=== PATIENT | female | born 1925 | race Caucasian/White ===

== ENCOUNTER 2016-09-05 14:57 | Inpatient (IN) | payer MEDICARE, BC ==
[2016-09-05] MEDS ORDERED: SODIUM CHLORIDE 0.9% 1,000 ML IV STA (15:12)
--- NOTE | 2016-09-05 15:41 | ED ---
General Adult HPI - General Chief complaint: Weakness Stated complaint: confused Time Seen by Provider: 09/05/16 15:12 Source: family, RN notes reviewed, old records reviewed Mode of arrival: wheelchair Limitations: no limitations - History of Present Illness Initial comments: This is an 89-year-old female here for evaluation of this patient presents for evaluation of altered mental status. Patient has no medical history of prior similar symptoms, going through increased stress associated hospital. Patient' s integument medication at home per family and no drugs or alcohol, no trauma. 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 - Related Data Home Medications Medication Instructions Recorded Confirmed Aspirin 81 mg PO QAM 12/25/13 09/05/16 Atenolol 25 mg PO QAM 12/25/13 09/05/16 Cholecalciferol [Vitamin D3] 2,000 unit PO HS 12/25/13 09/05/16 Loratadine [Claritin] 10 mg PO HS 12/25/13 09/05/16 Montelukast Sodium [Singulair] 10 mg PO HS 12/25/13 09/05/16 Multivitamins, Thera [Multivitamin 1 tab PO QAM 12/25/13 09/05/16 (formulary)] Simvastatin [Zocor] 40 mg PO HS 12/25/13 09/05/16 Tiotropium 18 Mcg/Puff [Spiriva] 1 cap INHALATION RT-DAILY 12/25/13 09/05/16 Cyanocobalamin [Vitamin B-12] 500 mcg PO QAM 11/14/15 09/05/16 Spironolactone [Aldactone] 25 mg PO DAILY 11/14/15 09/05/16 Clopidogrel [Plavix] 37.5 mg PO QAM 09/05/16 09/05/16 HYDROcodone/APAP 7.5-325MG [[place] 1 tab PO DAILY PRN 09/05/16 09/05/16 7.5-325] Allergies Allergy/AdvReac Type Severity Reaction Status Date / Time No Known Allergies Allergy Verified 09/05/16 15:38 Review of Systems ROS Statement: Those systems with pertinent positive or pertinent negative responses have been documented in the HPI. ROS Other: All systems not noted in ROS Statement are negative. Past Medical History Past Medical History: Asthma, Coronary Artery Disease (CAD), COPD, GI Bleed, Hearing Disorder / Deafness, Hyperlipidemia, Hypertension, Osteoarthritis (OA), Renal Disease Additional Past Medical History / Comment(s): hard of hearing, ischemic colitis , colonoscopy 10/2015-carcinoma in situ vs dysplastic colon polyps History of Any Multi-Drug Resistant Organisms: None Reported Past Surgical History: Heart Catheterization With Stent, Orthopedic Surgery, Tubal Ligation Additional Past Surgical History / Comment(s): 3-5 different stents, finger surgery Past Anesthesia/Blood Transfusion Reactions: Unable to Obtain Date of Last Stent Placement:: 1998 Past Psychological History: No Psychological Hx Reported Smoking Status: Never smoker Past Alcohol Use History: None Reported Past Drug Use History: None Reported - Past Family History Father Family Medical History: Coronary Artery Disease (CAD) Mother Family Medical History: Unable to Obtain Sister(s) Family Medical History: Cancer, CVA/TIA Daughter(s) Family Medical History: Coronary Artery Disease (CAD), Hyperlipidemia, Hypertension, Osteoarthritis (OA) Son(s) Family Medical History: Unable to Obtain General Exam Limitations: no limitations General appearance: alert, in no apparent distress Head exam: Present: atraumatic, normocephalic, normal inspection Eye exam: Present: normal appearance, PERRL, EOMI. Absent: scleral icterus, conjunctival injection, periorbital swelling ENT exam: Present: normal exam, mucous membranes moist Neck exam: Present: normal inspection. Absent: tenderness, meningismus, lymphadenopathy Respiratory exam: Present: normal lung sounds bilaterally. Absent: respiratory distress, wheezes, rales, rhonchi, stridor Cardiovascular Exam: Present: regular rate, normal rhythm, normal heart sounds. Absent: systolic murmur, diastolic murmur, rubs, gallop, clicks GI/Abdominal exam: Present: soft, normal bowel sounds. Absent: distended, tenderness, guarding, rebound, rigid Extremities exam: Present: normal inspection, full ROM, normal capillary refill. Absent: tenderness, pedal edema, joint swelling, calf tenderness Back exam: Present: normal inspection Neurological exam: Present: alert, oriented X3, CN II-XII intact Psychiatric exam: Present: normal affect, normal mood Skin exam: Present: warm, dry, intact, normal color. Absent: rash Course Vital Signs 09/05/16 15:03 Temperature 98.5 F Pulse Rate 79 Respiratory 16 Rate Blood Pressure 153/95 O2 Sat by Pulse 96 Oximetry - Reevaluation(s) Reevaluation #1: 09/05/16 16:16 Patient still remaining mildly altered, although able to straight for questions , knows where she has no surname is no scleral members at bedside EKG Findings - EKG Comments: EKG Findings:: EKG shows sinus rhythm rate of 66, IN 170, QRS 96, QTC 427 Medical Decision Making - Medical Decision Making 89 female the ER thought altered mental status, dehydration positive urinary tract infection, patient will be admitted for IV hydration, monitoring of mental status and IV antibiotics for UTI. - Lab Data Result diagrams: 09/05/16 15:31 09/05/16 15:31 Lab Results 09/05/16 09/05/16 09/05/16 Range/Units 15:29 15:31 15:31 WBC 8.1 (3.8-10.6) k/uL RBC 4.77 (3.80-5.40) m/uL Hgb 14.2 (11.4-16.0) gm/dL Hct 42.7 (34.0-46.0) % MCV 89.6 (80.0-100.0) fL MCH 29.6 (25.0-35.0) pg MCHC 33.1 (31.0-37.0) g/dL RDW 13.3 (11.5-15.5) % Plt Count 201 (150-450) k/uL Neutrophils % 60 % Lymphocytes % 26 % Monocytes % 7 % Eosinophils % 3 % Basophils % 1 % Neutrophils # 4.9 (1.3-7.7) k/uL Lymphocytes # 2.1 (1.0-4.8) k/uL Monocytes # 0.5 (0-1.0) k/uL Eosinophils # 0.3 (0-0.7) k/uL Basophils # 0.1 (0-0.2) k/uL PT (9.0-12.0) sec INR (<1.1) APTT (22.0-30.0) sec Sodium (137-145) mmol/L Potassium (3.5-5.1) mmol/L Chloride (98-107) mmol/L Carbon Dioxide (22-30) mmol/L Anion Gap mmol/L BUN (7-17) mg/dL Creatinine (0.52-1.04) mg/dL Est GFR (MDRD) Af Amer (>60 ml/min/1.73 sqM) Est GFR (MDRD) Non-Af (>60 ml/min/1.73 sqM) Glucose (74-99) mg/dL Calcium (8.4-10.2) mg/dL Phosphorus (2.5-4.5) mg/dL Magnesium (1.6-2.3) mg/dL Total Bilirubin (0.2-1.3) mg/dL AST (14-36) U/L ALT (9-52) U/L Alkaline Phosphatase (38-126) U/L Ammonia (<30) umol/L Total Creatine Kinase 58 (30-135) U/L Total Protein (6.3-8.2) g/dL Albumin (3.5-5.0) g/dL Urine Color Yellow Urine Appearance Clear (Clear) Urine pH 5.0 (5.0-8.0) Ur Specific [place] 1.019 (1.001-1.035) Urine Protein Negative (Negative) Urine Glucose (UA) Negative (Negative) Urine Ketones Negative (Negative) Urine Blood Negative (Negative) Urine Nitrite Negative (Negative) Urine Bilirubin Negative (Negative) Urine Urobilinogen <2.0 (<2.0) mg/dL Ur Leukocyte Esterase Large H (Negative) Urine RBC 3 (0-5) /hpf Urine WBC 17 H (0-5) /hpf Ur Squamous Epith Cells 4 (0-4) /hpf Urine Bacteria Rare H (None) /hpf Urine Mucus Rare H (None) /hpf 09/05/16 09/05/16 09/05/16 Range/Units 15:31 15:31 15:44 WBC (3.8-10.6) k/uL RBC (3.80-5.40) m/uL Hgb (11.4-16.0) gm/dL Hct (34.0-46.0) % MCV (80.0-100.0) fL MCH (25.0-35.0) pg MCHC (31.0-37.0) g/dL RDW (11.5-15.5) % Plt Count (150-450) k/uL Neutrophils % % Lymphocytes % % Monocytes % % Eosinophils % % Basophils % % Neutrophils # (1.3-7.7) k/uL Lymphocytes # (1.0-4.8) k/uL Monocytes # (0-1.0) k/uL Eosinophils # (0-0.7) k/uL Basophils # (0-0.2) k/uL PT 10.6 (9.0-12.0) sec INR 1.0 (<1.1) APTT 22.3 (22.0-30.0) sec Sodium 139 (137-145) mmol/L Potassium 5.0 (3.5-5.1) mmol/L Chloride 100 (98-107) mmol/L Carbon Dioxide 27 (22-30) mmol/L Anion Gap 12 mmol/L BUN 28 H (7-17) mg/dL Creatinine 1.06 H (0.52-1.04) mg/dL Est GFR (MDRD) Af Amer 59 (>60 ml/min/1.73 sqM) Est GFR (MDRD) Non-Af 49 (>60 ml/min/1.73 sqM) Glucose 123 H (74-99) mg/dL Calcium 10.2 (8.4-10.2) mg/dL Phosphorus 4.3 (2.5-4.5) mg/dL Magnesium 1.9 (1.6-2.3) mg/dL Total Bilirubin 0.6 (0.2-1.3) mg/dL AST 24 (14-36) U/L ALT 24 (9-52) U/L Alkaline Phosphatase 62 (38-126) U/L Ammonia <9 (<30) umol/L Total Creatine Kinase (30-135) U/L Total Protein 7.8 (6.3-8.2) g/dL Albumin 4.4 (3.5-5.0) g/dL Urine Color Urine Appearance (Clear) Urine pH (5.0-8.0) Ur Specific [place] (1.001-1.035) Urine Protein (Negative) Urine Glucose (UA) (Negative) Urine Ketones (Negative) Urine Blood (Negative) Urine Nitrite (Negative) Urine Bilirubin (Negative) Urine Urobilinogen (<2.0) mg/dL Ur Leukocyte Esterase (Negative) Urine RBC (0-5) /hpf Urine WBC (0-5) /hpf Ur Squamous Epith Cells (0-4) /hpf Urine Bacteria (None) /hpf Urine Mucus (None) /hpf - Radiology Data Radiology results: report reviewed, image reviewed Disposition Clinical Impression: Altered mental status, Weakness, Dehydration, UTI (urinary tract infection) Disposition: HOME SELF-CARE Condition: Good Referrals: Yecenia Larkin MD [Primary Care Provider] - 1-2 days
[2016-09-05 15:46] LABS: Basophils # (A) 0.1 k/uL (0-0.2); Basophils % (A) 1 %; CH 30.1; CHCM 33.8; Eosinophils # (A) 0.3 k/uL (0-0.7); Eosinophils % (A) 3 %; HCT 42.7 % (34.0-46.0); HDW 2.33; HGB 14.2 gm/dL (11.4-16.0); Luc # (Auto) 0.26; Luc % (Auto) 3; Lymphocytes # (A) 2.1 k/uL (1.0-4.8); Lymphocytes % (A) 26 %; MCH 29.6 pg (25.0-35.0); MCHC 33.1 g/dL (31.0-37.0); MCV 89.6 fL (80.0-100.0); Mean Platelet Volume 6.5; Monocytes # (A) 0.5 k/uL (0-1.0); Monocytes % (A) 7 %; Neutrophils # (A) 4.9 k/uL (1.3-7.7); Neutrophils % (A) 60 %; RBC 4.77 m/uL (3.80-5.40); RDW 13.3 % (11.5-15.5); WBC 8.1 k/uL (3.8-10.6); WBC (Perox) 7.69
[2016-09-05 15:57] LABS: Partial Thromboplastin Time 22.3 sec (22.0-30.0); Prothrombin Time 10.6 sec (9.0-12.0)
[2016-09-05 15:59] LABS: Calcium 10.2 mg/dL (8.4-10.2); Magnesium 1.9 mg/dL (1.6-2.3); Phosphorous 4.3 mg/dL (2.5-4.5); Total Bilirubin 0.6 mg/dL (0.2-1.3); Total Protein 7.8 g/dL (6.3-8.2)
--- NOTE | 2016-09-05 16:00 | CT ---
EXAMINATION TYPE: CT brain wo con DATE OF EXAM: 09/05/2016 3:56 PM COMPARISON: 04/28/2015 HISTORY: ams CT DLP: 1017.[address] of the brain was performed. The ventricles, basal cisterns and sulci overlying the cerebral convexities demonstrate mild enlargem ent. Remote insult left basal ganglia. There is no evidence for intracranial hemorrhage or sulcal effacement. There is decreased attenuation about the periventricular white matter and deep white matter of both c erebral hemispheres, compatible with chronic small vessel ischemia. Differential diagnosis does inclu de demyelination. No mass effects are seen.No midline shift. Osseous calvarium is intact. If symptoms persist consider MRI. IMPRESSION: 1. Age related atrophic and chronic small vessel ischemic change without acute intracranial process s een at this time.
[2016-09-05 16:05] LABS: Creatine Kinase 58 U/L (30-135)
[2016-09-05 16:07] LABS: Appearance,Urine Clear (Clear); Bacteria,Urine Rare /hpf; Bilirubin,Urine Negative (Negative); Glucose,Urine (UA) Negative (Negative); Ketones,Urine Negative (Negative); Leukocyte Esterase,Urine Large (Negative); Mucus,Urine Rare /hpf; Nitrite,Urine Negative (Negative); Particle Count 3672; Protein,Urine Negative (Negative); RBC,Urine 3 /hpf (0-5); Specific Gravity,Urine 1.019 (1.001-1.035); Squamous Epithelial Cell,Urine 4 /hpf (0-4); UA Billing (MACRO vs. MICRO) MICRO; Urobilinogen,Urine <2.0 mg/dL (<2.0); WBC,Urine 17 /hpf (0-5)
[2016-09-05 16:16] LABS: Creatine Kinase MB 1.2 ng/mL (0.0-2.4); Troponin I <0.012 ng/mL (0.000-0.034)
[2016-09-05] MEDS ORDERED: SODIUM CHLORIDE 0.9% 1,000 ML IV ONE (16:16)
[2016-09-05] MEDS ORDERED: HYDROcodone/APAP 7.5-325MG 1 EACH TAB PO PRN (18:56)
--- NOTE | 2016-09-05 19:07 | P.HPIM ---
History of Present Illness H&P Date: 09/05/16 Chief Complaint: Mental status change This is a pleasant 89-year-old lady patient of Dr. Santana/ ALEM avendaño/ Brendon/ Reese. She has underlying history of asthma diverticular disease asbestosis CAD COPD and hemorrhoids. She also has a colon polyp and CK D stage 2 -3 , admitted to the emergency room as family has noted her to be a bit more confused ever since the son has been ill lately as he was hospitalized in [facility]. she feels that she is more stressed and anxious however family mentioned about memory changes and increasing confusion, she now cant differentiate porkchops from chicken, all of which were new. no pain, there were no new medications placed by her PCP, patient does not require any additional treatments for her COPD asthma, she presented with confusion,with her not remembering things lately , not making the right appropriate answers, no signs of any other focal neurologic deficits, including ataxia or motor deficits, and was subsequently brought in for further evaluated in emergency room, In the emergency room she was found to have mild dehydration and acute urinary tract infection for which she is currently admitted secondary to metabolic encephalopathy. Ct brain failed to reveal any acute changes, chest xray was not performed. Review of Systems Constitutional: Reports as per HPI, Reports lethargy, Reports weakness, Denies anorexia, Denies chills, Denies chronic headaches, Denies chronic pain, Denies daytime sleepiness, Denies fatigue, Denies fever, Denies malaise, Denies night sweats, Denies poor appetite, Denies sweats, Denies weight gain, Denies weight loss Ears, nose, mouth and throat: Reports as per HPI, Denies ant. neck pain, Denies bleeding gums, Denies dental pain, Denies dysphagia, Denies epistaxis, Denies headache, Denies hoarseness, Denies mouth pain, Denies nasal congestion, Denies nasal discharge, Denies neck fullness/pressure, Denies neck lump, Denies nose pain, Denies odynophagia, Denies post-nasal drip, Denies sinus pain, Denies sinus pressure, Denies swelling in mouth, Denies swelling in throat, Denies sore throat, Denies vertigo, Denies voice changes Cardiovascular: Reports as per HPI, Denies chest pain, Denies claudication, Denies decreased exercise tolerance, Denies dyspnea on exertion, Denies edema, Denies high blood pressure, Denies irregular heart beat, Denies leg edema, Denies lightheadedness, Denies orthopnea, Denies palpitations, Denies paroxysmal nocturnal dyspnea, Denies phlebitis, Denies rapid heart beat, Denies shortness of breath, Denies syncope Respiratory: Reports as per HPI Gastrointestinal: Reports as per HPI, Denies abdominal pain, Denies belching, Denies bloating, Denies BRBPR, Denies change in bowel habits, Denies coffee ground emesis, Denies constipation, Denies diarrhea, Denies dyspepsia, Denies early satiety, Denies excessive gas, Denies heartburn, Denies hematemesis, Denies hematochezia, Denies indigestion, Denies jaundice, Denies lactose intolerance, Denies loss of appetite, Denies melena, Denies nausea, Denies vomiting Genitourinary: Reports as per HPI, Reports urge incontinence, Reports urinary frequency, Denies abnormal vaginal bleeding, Denies decreased libido, Denies difficulty conceiving, Denies difficulty voiding, Denies dysmenorrhea, Denies dyspareunia, Denies dysuria, Denies flank pain, Denies genital sores, Denies hematuria, Denies hot flashes, Denies incomplete emptying, Denies kidney stones , Denies menorrhagia, Denies mixed incontinence, Denies nocturia, Denies pelvic pain, Denies post void dribbling, Denies , Denies prolapse symptoms, Denies stress incontinence, Denies urgency, Denies vaginal discharge, Denies vaginal dryness, Denies vaginal itching, Denies vaginal odor Menstruation: Reports as per HPI, Reports postmenopausal Musculoskeletal: Reports as per HPI, Denies arm numbness/tingling, Denies atrophy, Denies fractures, Denies frequent falls, Denies gait dysfunction, Denies hot joints, Denies leg numbness/tingling, Denies limitation of motion, Denies loss of height, Denies low back pain, Denies morning stiffness, Denies muscle cramps, Denies muscle weakness, Denies myalgias, Denies neck pain, Denies neck stiffness, Denies prior amputations, Denies redness of joints, Denies shooting arm pain, Denies shooting leg pain Integumentary: Reports as per HPI, Denies acne, Denies boils, Denies brittle nails, Denies change in hair/nails, Denies color changes, Denies darkening of skin, Denies depigmentation, Denies dryness, Denies foot/leg ulcers, Denies growths, Denies hirsutism, Denies lesions, Denies onychomycosis, Denies pruritus , Denies rash, Denies sores, Denies striae, Denies unusual bruising, Denies wounds Neurological: Reports as per HPI, Reports confusion, Reports hearing difficulties, Reports weakness, Denies aphasia, Denies ataxia, Denies balance difficulties, Denies burning pain, Denies change in mentation, Denies change in smell/taste, Denies change in speech, Denies convulsions, Denies double vision, Denies gait dysfunction, Denies head injury, Denies headaches, Denies lack of coordination, Denies loss of vision, Denies memory loss, Denies migraines, Denies motor disturbance, Denies numbness, Denies paralysis, Denies paresthesias , Denies seizures, Denies sensory deficit, Denies spasticity, Denies syncope, Denies tic, Denies tingling, Denies transient paralysis, Denies tremors, Denies vertigo, Denies visual changes Psychiatric: Reports as per HPI, Denies anhedonia, Denies anxiety, Denies anxiety attacks, Denies change in appetite, Denies change in libido, Denies change in sleep habits, Denies confusion, Denies depression, Denies difficulty concentrating, Denies disorientation, Denies hallucinations, Denies hopelessness , Denies hypersomnia, Denies insomnia, Denies irritability, Denies memory loss, Denies mood swings, Denies paranoia, Denies sadness/tearfulness, Denies sleep disturbances, Denies suicidal ideation Endocrine: Reports as per HPI, Denies cold intolerance, Denies deepening of the voice, Denies excessive sweating, Denies excessive thirst, Denies fatigue, Denies flushing, Denies heat intolerance, Denies high blood sugars, Denies increase in ring/shoe/hat size, Denies low blood sugars, Denies nocturia, Denies palpitations, Denies polydipsia, Denies polyphagia, Denies polyuria, Denies proptosis, Denies recent glucocorticoid use, Denies thyroid mass, Denies weight change Hematologic/Lymphatic: Reports as per HPI, Denies easy bleeding, Denies easy bruising, Denies lymphadenopathy, Denies lymphedema, Denies thrombophilia Allergic/Immunologic: Reports as per HPI, Denies allergic rhinitis, Denies anaphylaxis, Denies angioedema, Denies gluten intolerance, Denies persistent infections, Denies seasonal allergies, Denies urticaria, Denies wheezing Past Medical History Past Medical History: Asthma, Coronary Artery Disease (CAD), COPD, GI Bleed, Hearing Disorder / Deafness, Hyperlipidemia, Hypertension, Osteoarthritis (OA), Renal Disease Additional Past Medical History / Comment(s): hard of hearing,"diverticulosis, internal hemorrhoids" ischemic colitis, colonoscopy 10/2015-carcinoma in situ vs dysplastic colon polyps History of Any Multi-Drug Resistant Organisms: None Reported Past Surgical History: Cholecystectomy, Heart Catheterization With Stent, Orthopedic Surgery, Tubal Ligation Additional Past Surgical History / Comment(s): 3-5 different stents, "finger surgery family thinks it was rt hand", Past Anesthesia/Blood Transfusion Reactions: Unable to Obtain Date of Last Stent Placement:: 1998 Past Psychological History: Depression Additional Psychological History / Comment(s): pt lives at [facility]-no steps to climb. has cane,walker, nebulizer. no outside services,no pets Smoking Status: Never smoker Past Alcohol Use History: None Reported Past Drug Use History: None Reported - Past Family History Father Family Medical History: Coronary Artery Disease (CAD) Mother Family Medical History: Unable to Obtain Additional Family Medical History / Comment(s): pt's mom when pt was young not sure of cause Sister(s) Family Medical History: Cancer, CVA/TIA Daughter(s) Family Medical History: Coronary Artery Disease (CAD), Hyperlipidemia, Hypertension, Osteoarthritis (OA) Son(s) Family Medical History: Unable to Obtain Medications and Allergies Home Medications Medication Instructions Recorded Confirmed Type Aspirin 81 mg PO [facility] 12/25/13 09/05/16 History Atenolol 25 mg PO [facility] 12/25/13 09/05/16 History Cholecalciferol [Vitamin D3] 2,000 unit PO 12/25/13 09/05/16 History Loratadine [Claritin] 10 mg PO 12/25/13 09/05/16 History Montelukast Sodium [Singulair] 10 mg PO HS 12/25/13 09/05/16 History Multivitamins, Thera [Multivitamin 1 tab PO QAM 12/25/13 09/05/16 History (formulary)] Simvastatin [Zocor] 40 mg PO HS 12/25/13 09/05/16 History Tiotropium 18 Mcg/Puff [Spiriva] 1 cap INHALATION RT-DAILY 12/25/13 09/05/16 History Cyanocobalamin [Vitamin B-12] 500 mcg PO QAM 11/14/15 09/05/16 History Spironolactone [Aldactone] 25 mg PO DAILY 11/14/15 09/05/16 History Clopidogrel [Plavix] 37.5 mg PO QAM 09/05/16 09/05/16 History HYDROcodone/APAP 7.5-325MG [[place] 1 tab PO DAILY PRN 09/05/16 09/05/16 History 7.5-325] Allergies Allergy/AdvReac Type Severity Reaction Status Date / Time No Known Allergies Allergy Verified 09/05/16 15:38 Physical Exam Vitals: Vital Signs Temp Pulse Resp BP Pulse Ox 09/05/16 18:10 98.5 F 69 18 119/65 96 09/05/16 16:29 97.1 F L 80 18 121/59 98 - Constitutional General appearance: cooperative, no acute distress - EENT Eyes: anicteric sclerae, EOMI, PERRLA ENT: NA/AT, normal oropharynx - Neck Neck: no lymphadenopathy, normal ROM, no other, no rigidity, no stridor, no thyromegaly - Respiratory Respiratory: bilateral: CTA, negative: dullness, rales, rhonchi, wheezing, prolonged expiration - Cardiovascular Rhythm: regular Heart sounds: normal: S1, S2 Abnormal Heart Sounds: no systolic murmur, no diastolic murmur, no rub, no S3 Gallop, no S4 Gallop, no click, no other - Gastrointestinal General gastrointestinal: normal bowel sounds, soft - Integumentary Integumentary: normal, normal turgor - Musculoskeletal Musculoskeletal: gait normal, strength equal bilaterally - Psychiatric Psychiatric: A&O x's 3 Results CBC & Chem 7: 09/06/16 06:59 09/06/16 06:59 Labs: Laboratory Results WBC 8.1 k/uL (3.8-10.6) 09/05/16 15: RBC 4.77 m/uL (3.80-5.40) 09/05/16 15: Hgb 14.2 gm/dL (11.4-16.0) 09/05/16 15: Hct 42.7 % (34.0-46.0) 09/05/16 15: MCV 89.6 fL (80.0-100.0) 09/05/16 15: MCH 29.6 pg (25.0-35.0) 09/05/16 15: MCHC 33.1 g/dL (31.0-37.0) 09/05/16 15: RDW 13.3 % (11.5-15.5) 09/05/16 15: Plt Count 201 k/uL (150-450) 09/05/16 15: Neutrophils % 60 % 09/05/16 15: Lymphocytes % 26 % 09/05/16 15: Monocytes % 7 % 09/05/16 15: Eosinophils % 3 % 09/05/16 15: Basophils % 1 % 09/05/16 15: Neutrophils # 4.9 k/uL (1.3-7.7) 09/05/16 15: Lymphocytes # 2.1 k/uL (1.0-4.8) 09/05/16 15: Monocytes # 0.5 k/uL (0-1.0) 09/05/16 15: Eosinophils # 0.3 k/uL (0-0.7) 09/05/16 15: Basophils # 0.1 k/uL (0-0.2) 09/05/16 15: PT 10.6 sec (9.0-12.0) 09/05/16 15: INR 1.0 (<1.1) 09/05/16 15: APTT 22.3 sec (22.0-30.0) 09/05/16 15: Sodium 139 mmol/L (137-145) 09/05/16 15: Potassium 5.0 mmol/L (3.5-5.1) 09/05/16 15: Chloride 100 mmol/L (98-107) 09/05/16 15:31 Carbon Dioxide 27 mmol/L (22-30) 09/05/16 15:31 Anion Gap 12 mmol/L 09/05/16 15:31 BUN 28 mg/dL (7-17) H 09/05/16 15:31 Creatinine 1.06 mg/dL (0.52-1.04) H 09/05/16 15:31 Est GFR (MDRD) Af Amer 59 (>60 ml/min/1.73 sqM) 09/05/16 15:31 Est GFR (MDRD) Non-Af 49 (>60 ml/min/1.73 sqM) 09/05/16 15:31 Glucose 123 mg/dL (74-99) H 09/05/16 15:31 Calcium 10.2 mg/dL (8.4-10.2) 09/05/16 15:31 Phosphorus 4.3 mg/dL (2.5-4.5) 09/05/16 15:31 Magnesium 1.9 mg/dL (1.6-2.3) 09/05/16 15:31 Total Bilirubin 0.6 mg/dL (0.2-1.3) 09/05/16 15:31 AST 24 U/L (14-36) 09/05/16 15:31 ALT 24 U/L (9-52) 09/05/16 15:31 Alkaline Phosphatase 62 U/L (38-126) 09/05/16 15:31 Ammonia <9 umol/L (<30) 09/05/16 15:44 Total Creatine Kinase 58 U/L (30-135) 09/05/16 15:31 CK-MB (CK-2) 1.2 ng/mL (0.0-2.4) 09/05/16 15:31 CK-MB (CK-2) Rel Index 2.1 09/05/16 15:31 Troponin I <0.012 ng/mL (0.000-0.034) 09/05/16 15:31 Total Protein 7.8 g/dL (6.3-8.2) 09/05/16 15:31 Albumin 4.4 g/dL (3.5-5.0) 09/05/16 15:31 Urine Color Yellow 09/05/16 15:29 Urine Appearance Clear (Clear) 09/05/16 15: Urine pH 5.0 (5.0-8.0) 09/05/16 15:29 Ur Specific [place] 1.019 (1.001-1.035) 09/05/16 15: Urine Protein Negative (Negative) 09/05/16 15:29 Urine Glucose (UA) Negative (Negative) 09/05/16 15: Urine Ketones Negative (Negative) 09/05/16 15: Urine Blood Negative (Negative) 09/05/16 15: Urine Nitrite Negative (Negative) 09/05/16 15: Urine Bilirubin Negative (Negative) 09/05/16 15: Urine Urobilinogen <2.0 mg/dL (<2.0) 09/05/16 15: Ur Leukocyte Esterase Large (Negative) H 09/05/16 15: Urine RBC 3 /hpf (0-5) 09/05/16 15: Urine WBC 17 /hpf (0-5) H 09/05/16 15:29 Ur Squamous Epith Cells 4 /hpf (0-4) 09/05/16 15:29 Urine Bacteria Rare /hpf (None) H 09/05/16 15: Urine Mucus Rare /hpf (None) H 09/05/16 15:29 Thrombosis Risk Factor Assmnt - Choose All That Apply Each Factor Represents 1 point: Obesity (BMI >25) Each Risk Factor Represents 3 Points: Age 75 years or older Thrombosis Risk Factor Assessment Total Risk Factor Score: 4 Thrombosis Risk Factor Assessment Level: Moderate Risk Assessment and Plan Plan: \\ 1. Metabolic encephalopathy secondary to acute urinary tract infection, cultures were sent both blood in urine, start Rocephin, and no previous microbes isolated from previous urine cultures from our facility, 2. Acute dehydration with acute renal sufficiency CK D stage II next be given fluids with gentle hydration, avoid nephrotoxins monitored labs, hold Aldactone at this time may be restarted just prior to discharge once creatinine and hydration status improves 3. CAD and previous cardiac stents the past follows with Dr. ALEM avendaño as out patient c She is to resume home meds that includes atenolol 25 mg daily 4. COPD/asthma no acute exacerbation on Singulair she can receive nebulized albuterol ER Spiriva has been resumed. She has a nebulizer at home for which she uses maybe approximately one per week 5. Hypertensive vascular disease for which she is on atenolol 25 mg the daily hold Aldactone secondary to mild dehydration with renal sufficiency 5. Decreased hearing which is chronic 6. Hyperlipidemia on Zocor. 7. prior history of asbestosis follows with Dr. Leigh as an outpatient 8. history of colon polyps over 10 years ago 9. DVT prophylaxis with Lovenox 10. GI prophylaxis with IV Pepcid
[2016-09-05] MEDS: CHOLECALCIFEROL 1,000 UNIT TAB PO SCH (20:40)
[2016-09-05] MEDS: MONTELUKAST 10 MG TAB PO SCH (20:40)
[2016-09-05] MEDS: ATORVASTATIN 20 MG TAB PO SCH (20:40)
[2016-09-05] MEDS: LORATADINE 10 MG TAB PO SCH (20:40)
[2016-09-05] MEDS ORDERED: FAMOTIDINE 20 MG/2 ML VIAL IV SCH (21:00)
[2016-09-06] MEDS: SODIUM CHLORIDE 0.9% 1,000 ML IV SCH ×2 (04:02→17:11)
[2016-09-06 07:48] LABS: Basophils # (A) 0.1 k/uL (0-0.2); Basophils % (A) 1 %; CHCM 33.4; Eosinophils # (A) 0.3 k/uL (0-0.7); Eosinophils % (A) 4 %; HCT 38.6 % (34.0-46.0); HDW 2.33; HGB 12.6 gm/dL (11.4-16.0); Luc # (Auto) 0.19; Luc % (Auto) 3; Lymphocytes # (A) 1.9 k/uL (1.0-4.8); Lymphocytes % (A) 26 %; MCH 29.3 pg (25.0-35.0); MCHC 32.5 g/dL (31.0-37.0); MCV 90.2 fL (80.0-100.0); Mean Platelet Volume 6.6; Monocytes # (A) 0.4 k/uL (0-1.0); Monocytes % (A) 6 %; Neutrophils # (A) 4.4 k/uL (1.3-7.7); Neutrophils % (A) 61 %; RBC 4.28 m/uL (3.80-5.40); RDW 13.5 % (11.5-15.5); WBC 7.2 k/uL (3.8-10.6); WBC (Perox) 7.72
[2016-09-06] MEDS: TIOTROPIUM 18 MCG/PUFF INHALER INHALATION SCH (07:51)
[2016-09-06] MEDS: ATENOLOL 25 MG TAB PO SCH (08:08)
[2016-09-06] MEDS: ASPIRIN 81 MG CHEW PO SCH (08:08)
[2016-09-06] MEDS: CYANOCOBALAMIN 500 MCG TAB PO SCH (08:09)
[2016-09-06] MEDS: MULTIVITAMINS, THERA 1 EACH TAB PO SCH (08:09)
[2016-09-06] MEDS: ENOXAPARIN 40 MG/0.4 ML SYRINGE SQ SCH (08:09)
[2016-09-06] MEDS: CLOPIDOGREL 75 MG TAB PO SCH (08:09)
[2016-09-06] MEDS: FAMOTIDINE 20 MG/2 ML VIAL IV SCH (08:09)
[2016-09-06 08:14] LABS: Anion Gap 9 mmol/L; Blood Urea Nitrogen 22 mg/dL (7-17); Calcium 9.3 mg/dL (8.4-10.2); Carbon Dioxide 25 mmol/L (22-30); Chloride 107 mmol/L (98-107); Glucose 108 mg/dL (74-99); Non-African American GFR(MDRD) 52 (>60 ml/min/1.73 sqM); Potassium 4.7 mmol/L (3.5-5.1); Sodium 141 mmol/L (137-145)
--- NOTE | 2016-09-06 11:58 | PN ---
INTERVAL HISTORY: Patient continued to be hemodynamically stable, said that she had some improvement since yesterday, but still weak and tired. Patient's mental status is back at baseline where she is alert and oriented x3. No major events reported by nursing staff at this point. Patient lives at home by herself and knows that she is at [facility]. PHYSICAL EXAMINATION: VITAL SIGNS: 97.0, 62, 16, 140/81 and saturation is 95% on room air. LUNGS: Clear to auscultation bilaterally. HEART: Normal S1, S2. ABDOMEN: Soft, no tenderness, positive bowel sounds in all 4 quadrants. LOWER EXTREMITY: No edema. PSYCH: As above. SKIN: No new rash. IMAGING AND LABS: Her creatinine has improved to normal since yesterday. CBC normal findings. Urine culture is still pending, negative. ASSESSMENT AND PLAN: 1. Altered mental status, resolved. 2. Urinary tract infection. We will continue Rocephin. 3. Dehydration. We will continue gentle hydration at 50 mL/hour and encourage p.o. intake. Discussed with the nursing staff. 4. Chronic obstructive pulmonary disease, seems to be compensated. 5. Hyperlipidemia, will continue Zocor. 6. Discharge planning in the next 24 hours based on clinical progress.
[2016-09-06] MEDS: CHOLECALCIFEROL 1,000 UNIT TAB PO SCH (20:01)
[2016-09-06] MEDS: MONTELUKAST 10 MG TAB PO SCH (20:01)
[2016-09-06] MEDS: LORATADINE 10 MG TAB PO SCH (20:01)
[2016-09-06] MEDS: ATORVASTATIN 20 MG TAB PO SCH (20:01)
[2016-09-07 07:07] LABS: Basophils # (A) 0.1 k/uL (0-0.2); Basophils % (A) 1 %; CH 29.7; CHCM 33.5; Eosinophils # (A) 0.3 k/uL (0-0.7); Eosinophils % (A) 4 %; HCT 38.8 % (34.0-46.0); HDW 2.33; HGB 13.1 gm/dL (11.4-16.0); Luc # (Auto) 0.18; Luc % (Auto) 3; Lymphocytes # (A) 1.9 k/uL (1.0-4.8); Lymphocytes % (A) 26 %; MCH 30.1 pg (25.0-35.0); MCHC 33.8 g/dL (31.0-37.0); MCV 89.1 fL (80.0-100.0); Mean Platelet Volume 6.6; Monocytes # (A) 0.4 k/uL (0-1.0); Monocytes % (A) 5 %; Neutrophils # (A) 4.4 k/uL (1.3-7.7); Neutrophils % (A) 61 %; RBC 4.35 m/uL (3.80-5.40); RDW 13.4 % (11.5-15.5); WBC 7.2 k/uL (3.8-10.6); WBC (Perox) 7.76
[2016-09-07 07:23] LABS: Anion Gap 11 mmol/L; Blood Urea Nitrogen 22 mg/dL (7-17); Calcium 9.1 mg/dL (8.4-10.2); Carbon Dioxide 24 mmol/L (22-30); Chloride 105 mmol/L (98-107); Glucose 115 mg/dL (74-99); Non-African American GFR(MDRD) 51 (>60 ml/min/1.73 sqM); Potassium 4.3 mmol/L (3.5-5.1); Sodium 140 mmol/L (137-145)
[2016-09-07 07:36] VITALS: RESP 16
[2016-09-07] MEDS: ENOXAPARIN 40 MG/0.4 ML SYRINGE SQ SCH (07:39)
[2016-09-07] MEDS: FAMOTIDINE 20 MG/2 ML VIAL IV SCH (07:40)
[2016-09-07] MEDS: CYANOCOBALAMIN 500 MCG TAB PO SCH (07:40)
[2016-09-07] MEDS: CLOPIDOGREL 75 MG TAB PO SCH (07:40)
[2016-09-07] MEDS: ASPIRIN 81 MG CHEW PO SCH (07:40)
[2016-09-07] MEDS: MULTIVITAMINS, THERA 1 EACH TAB PO SCH (07:41)
[2016-09-07] MEDS: ATENOLOL 25 MG TAB PO SCH (07:41)
[2016-09-07] MEDS: TIOTROPIUM 18 MCG/PUFF INHALER INHALATION SCH (08:58)
--- NOTE | 2016-09-07 12:44 | PN ---
DATE OF SERVICE: 09/07/2016 The patient continues to be hemodynamically stable. Currently sitting up in chair. Denying chest pain, shortness breath, nausea, vomiting, abdominal pain. No dizziness, lightheadedness, or blurry vision. PHYSICAL EXAMINATION: VITAL SIGNS: 97.6, 67, 18, 156/73 and saturation is 95% on room air. LUNGS: Clear to auscultation bilaterally. HEART: Normal S1 and S2. ABDOMEN: Soft, no tenderness, positive bowel sounds in all 4 quadrants. EXTREMITIES: Lower extremities no edema. Patient is hard of hearing. IMAGING AND LABS: Normal CBC, normal Chem-7. Slight elevation in glucose 115. Urine culture is still pending, negative. ASSESSMENT AND PLAN: 1. Acute mental status change, resolved, likely related to urinary tract infection. 2. Urinary tract infection. We will continue antibiotics, Rocephin daily. Follow-up on final culture results. Consider discharging patient based on test results. 3. Dehydration, continue gentle hydration. 4. Chronic obstructive pulmonary disease, seems to be compensated. 5. Discharge process in the next 24 hours based on urine culture results.
[2016-09-07] MEDS: SODIUM CHLORIDE 0.9% 1,000 ML IV SCH (12:59)
[2016-09-07] MEDS ORDERED: FUROSEMIDE 10 MG/ML 4 ML VIAL IV STA (13:06)
[2016-09-07] MEDS ORDERED: ENOXAPARIN 30 MG/0.3 ML SYRINGE SQ SCH (16:33)
[2016-09-07] MEDS: CHOLECALCIFEROL 1,000 UNIT TAB PO SCH (20:06)
[2016-09-07] MEDS: LORATADINE 10 MG TAB PO SCH (20:06)
[2016-09-07] MEDS: MONTELUKAST 10 MG TAB PO SCH (20:06)
[2016-09-07] MEDS: ATORVASTATIN 20 MG TAB PO SCH (20:06)
[2016-09-08 07:44] LABS: Basophils # (A) 0.1 k/uL (0-0.2); Basophils % (A) 1 %; Eosinophils # (A) 0.3 k/uL (0-0.7); Eosinophils % (A) 4 %; HCT 40.1 % (34.0-46.0); HDW 2.31; HGB 12.9 gm/dL (11.4-16.0); Luc # (Auto) 0.19; Luc % (Auto) 2; Lymphocytes # (A) 1.5 k/uL (1.0-4.8); Lymphocytes % (A) 19 %; MCH 29.3 pg (25.0-35.0); MCHC 32.2 g/dL (31.0-37.0); MCV 91.2 fL (80.0-100.0); Mean Platelet Volume 6.3; Monocytes # (A) 0.4 k/uL (0-1.0); Monocytes % (A) 6 %; Neutrophils # (A) 5.5 k/uL (1.3-7.7); Neutrophils % (A) 69 %; RDW 13.5 % (11.5-15.5); WBC (Perox) 8.64
[2016-09-08 07:49] VITALS: BP 135/62; PULSE 63; TEMP 98.1
[2016-09-08 07:54] LABS: Calcium 9.2 mg/dL (8.4-10.2); Potassium 4.6 mmol/L (3.5-5.1)
[2016-09-08] MEDS: ASPIRIN 81 MG CHEW PO SCH (08:15)
[2016-09-08] MEDS: CLOPIDOGREL 75 MG TAB PO SCH (08:15)
[2016-09-08] MEDS: ATENOLOL 25 MG TAB PO SCH (08:15)
[2016-09-08] MEDS: CYANOCOBALAMIN 500 MCG TAB PO SCH (08:16)
[2016-09-08] MEDS: SODIUM CHLORIDE 0.9% 1,000 ML IV SCH (08:25)
[2016-09-08] MEDS ORDERED: FAMOTIDINE 20 MG TAB PO SCH (09:00)
[2016-09-08] MEDS: TIOTROPIUM 18 MCG/PUFF INHALER INHALATION SCH (09:12)
[2016-09-08] MEDS: MULTIVITAMINS, THERA 1 EACH TAB PO SCH (12:32)
--- NOTE | 2016-09-08 14:40 | P.DS ---
Providers Date of admission: 09/05/16 16:16 Expected date of discharge: 09/08/16 Attending physician: Ren Solorio Primary care physician: Yecenia Larkin [facility] Hospital Course: This is an 89-year-old female patient of Dr. Santana/ ALEM avendaño/ Brendon / Reese. She has underlying history of asthma, diverticular disease, asbestosis, CAD, COPD, and hemorrhoids. She also has a colon polyp and CKD stage 2 -3 , admitted to the emergency room as family has noted her to be a bit more confused ever since the son has been ill lately as he was hospitalized in [facility]. She feels that she is more stressed and anxious however family mentioned about memory changes and increasing confusion, she now cant differentiate porkchops from chicken, all of which were new. no pain, there were no new medications placed by her PCP, patient does not require any additional treatments for her COPD asthma, she presented with confusion,with her not remembering things lately, not making the right appropriate answers, no signs of any other focal neurologic deficits, including ataxia or motor deficits, and was subsequently brought in for further evaluated in emergency room, In the emergency room she was found to have mild dehydration and acute urinary tract infection for which she is currently admitted secondary to metabolic encephalopathy. Ct brain failed to reveal any acute changes, chest xray was not performed. 09/08: Patient's daughter is at bedside. Her mental status is much improved. Urine culture showed contamination. Patient will be discharged home on Ceftin. Discharge diagnoses: 1. Metabolic encephalopathy secondary to acute urinary tract infection 2. Acute dehydration with CKD stage II 3. CAD and previous cardiac stents 4. COPD no acute exacerbation 5. Hypertensive cardiovascular disease 5. Decreased hearing which is chronic 6. Hyperlipidemia 7. prior history of asbestosis follows with Dr. Leigh 8. history of colon polyps over 10 years ago Discharge plan: Return home Impression and plan of care have been directed as dictated by the signing physician. Rebecca Cochran nurse practitioner acting as scribe for signing physician. Patient Condition at Discharge: Good Plan - Discharge Summary New Discharge Prescriptions: Cefuroxime [Ceftin] 250 mg PO BID #14 tablet Discharge Medication List Aspirin 81 mg PO QAM 12/25/13 [History] Atenolol 25 mg PO QAM 12/25/13 [History] Cholecalciferol [Vitamin D3] 2,000 unit PO HS 12/25/13 [History] Loratadine [Claritin] 10 mg PO HS 12/25/13 [History] Montelukast Sodium [Singulair] 10 mg PO HS 12/25/13 [History] Multivitamins, Thera [Multivitamin (formulary)] 1 tab PO QAM 12/25/13 [History] Simvastatin [Zocor] 40 mg PO HS 12/25/13 [History] Tiotropium 18 Mcg/Puff [Spiriva] 1 cap INHALATION RT-DAILY 12/25/13 [History] Cyanocobalamin [Vitamin B-12] 500 mcg PO QAM 11/14/15 [History] Spironolactone [Aldactone] 25 mg PO DAILY 11/14/15 [History] Clopidogrel [Plavix] 37.5 mg PO QAM 09/05/16 [History] HYDROcodone/APAP 7.5-325MG [[place] 7.5-325] 1 tab PO DAILY PRN 09/05/16 [History] Cefuroxime [Ceftin] 250 mg PO BID #14 tablet 09/08/16 [Rx] Follow up Appointment(s)/Referral(s): Yecenia Larkin MD [Primary Care Provider] - 09/16/16 10:45 am Patient Instructions/Handouts: Cefuroxime (By mouth), Dehydration (DC), Urinary Tract Infection in Women (DC), Weakness (GEN) Discharge Disposition: HOME SELF-CARE
== END 2016-09-08 13:25 | disposition home or self-care (01) | DRG 689 ==
LOC: EC 14:57 → 5MS5E 16:16
PROVIDERS: ADMIT Internal Medicine Geriatric Medicine; ATTEND Internal Medicine Geriatric Medicine
DX: N39.0 Urinary tract infection, site not specified (principal); G93.41 Metabolic encephalopathy; N17.9 Acute kidney failure, unspecified; J44.9 Chronic obstructive pulmonary disease, unspecified; E86.0 Dehydration; I13.10 Hypertensive heart and chronic kidney disease without heart failure, with stage 1 through stage 4 chronic kidney disease, or unspecified chronic kidney disease; E78.5 Hyperlipidemia, unspecified; F32.9 Major depressive disorder, single episode, unspecified; H91.90 Unspecified hearing loss, unspecified ear; I25.10 Atherosclerotic heart disease of native coronary artery without angina pectoris; J45.909 Unspecified asthma, uncomplicated; K63.5 Polyp of colon; N18.2 Chronic kidney disease, stage 2 (mild); K57.90 Diverticulosis of intestine, part unspecified, without perforation or abscess without bleeding; K64.8 Other hemorrhoids; M19.90 Unspecified osteoarthritis, unspecified site; J61 Pneumoconiosis due to asbestos and other mineral fibers; Z79.82 Long term (current) use of aspirin; Z79.899 Other long term (current) drug therapy; Z95.5 Presence of coronary angioplasty implant and graft; Z82.49 Family history of ischemic heart disease and other diseases of the circulatory system
CPT/HCPCS: 36415; 70450; 80048; 80053; 81001; 82140; 82550; 82553; 83605; 83735; 84100; 84484; 85025; 85610; 85730; 87086; 93005; 94640; 94760; 96365; 99285

== ENCOUNTER → 2016-09-16 | Outpatient (CLI) | payer MEDICARE, BC ==
[2016-09-16 20:19] LABS: Basophils # (A) 0.1 k/uL (0-0.2); Basophils % (A) 1 %; CH 29.6; CHCM 32.9; Eosinophils # (A) 0.2 k/uL (0-0.7); Eosinophils % (A) 2 %; HDW 2.32; HGB 13.1 gm/dL (11.4-16.0); Luc # (Auto) 0.12; Luc % (Auto) 2; Lymphocytes # (A) 1.6 k/uL (1.0-4.8); Lymphocytes % (A) 20 %; MCV 90.4 fL (80.0-100.0); Mean Platelet Volume 7.6; Monocytes # (A) 0.5 k/uL (0-1.0); Monocytes % (A) 7 %; Neutrophils # (A) 5.4 k/uL (1.3-7.7); Neutrophils % (A) 69 %; RBC 4.54 m/uL (3.80-5.40); RDW 13.3 % (11.5-15.5); WBC 7.8 k/uL (3.8-10.6); WBC (Perox) 8.57
[2016-09-16 20:25] LABS: ALT 37 U/L (9-52); AST 23 U/L (14-36); Alkaline Phosphatase 54 U/L (38-126); Anion Gap 11 mmol/L; Blood Urea Nitrogen 23 mg/dL (7-17); Calcium 9.8 mg/dL (8.4-10.2); Carbon Dioxide 25 mmol/L (22-30); Chloride 103 mmol/L (98-107); Glucose 139 mg/dL (74-99); Non-African American GFR(MDRD) 52 (>60 ml/min/1.73 sqM); Potassium 4.5 mmol/L (3.5-5.1); Sodium 139 mmol/L (137-145); Total Bilirubin 0.5 mg/dL (0.2-1.3); Total Protein 7.3 g/dL (6.3-8.2)
== END ==
LOC: MMGSC 11:55
PROVIDERS: ATTEND Family Medicine
DX: N39.0 Urinary tract infection, site not specified (principal); R41.0 Disorientation, unspecified; R53.83 Other fatigue
CPT/HCPCS: 36415; 80053; 84439; 84443; 85025; 87086